=== PATIENT | male | born 1955 | race American Indian/Alaskan Native ===

== ENCOUNTER 2020-04-12 05:57 | Day surgery (SDC) | payer MEDICARE, OTHER ==
[2020-04-12] MEDS ORDERED: SODIUM CHLORIDE 0.9% 1000 ML 1,000 ML IV SCH (06:00)
[2020-04-12] MEDS ORDERED: ceFAZolin/Water 2 GM/20 ML 2 GM/20 ML SYRINGE IV NR (06:00)
[2020-04-12] MEDS ORDERED: MIDAZOLAM 2 MG/2 ML INJ IV NR (06:00)
[2020-04-12 07:02] LABS: Hematocrit 35.6 % (35.5-45.6); Hemoglobin 11.8 gm/dl (11.8-15.2); Mean Corpuscular HGB Conc 33 % (32-34); Mean Corpuscular Volume 104 fl (84-94); Platelet Count 254 K/mm3 (140-440); Red Blood Count 3.42 M/mm3 (3.65-5.03)
[2020-04-12] MEDS ORDERED: fentaNYL 100 MCG/2 ML INJ IV NR (07:07)
[2020-04-12] MEDS ORDERED: BUPIVACAINE/PF (0.25%) 2.5 MG/ML 30 ML VIAL INFILTRATI ONE (07:16)
[2020-04-12] MEDS ORDERED: LIDOCAINE (1%) 10 MG/1 ML VIAL 20 ML MDV ONE (07:16)
[2020-04-12] MEDS ORDERED: propofoL 200 MG/20 ML VIAL IV ONE ×2 (07:25→09:01)
--- NOTE | 2020-04-12 07:29 | Anesthesia Day of Surgery ---
Anesthesia Day of Surgery - Day of Surgery Patient Examined: Yes Patient H&P Reviewed: Yes Patient is NPO: Yes
--- NOTE | 2020-04-12 07:29 | Anesthesia Consultation ---
Anesthesia Consult and Med Hx Date of service: 04/12/20 - Airway Anesthetic Teeth Evaluation: Good ROM Head & Neck: Adequate Mental/Hyoid Distance: Adequate Mallampati Class: Class III Intubation Access Assessment: Possibly Difficult - Pulmonary Exam CTA: Yes - Cardiac Exam Cardiac Exam: RRR - Pre-Operative Health Status ASA Pre-Surgery Classification: ASA3 Proposed Anesthetic Plan: MAC Nerve Block: supraclavicular - Pulmonary Hx Smoking: No Hx Respiratory Symptoms: No Hx Sleep Apnea: No (HIGH RISK ON DEEDEE PRESCREEN) - Cardiovascular System Hx Hypertension: Yes Hx Heart Attack/AMI: No Hx Percutaneous Transluminal Coronary Angioplasty (PTCA): No Hx Cardia Arrhythmia: No Hx Heart Murmur: No - Central Nervous System CVA: Yes (TIA 2017) - Endocrine Hx End Stage Renal Disease: Yes (last HD 04/12/20) Hx Liver Disease: No Hx Insulin Dependent Diabetes: Yes Hx Thyroid Disease: No - Hematic Hx Anemia: Yes - Other Systems Hx Obesity: Yes (BMI 35) - Additional Comments Anesthesia Medical History Comments: No hx anesthetic complications.
[2020-04-12] MEDS ORDERED: HEPARIN 10,000 UNITS/10 ML VIAL ONE (07:34)
[2020-04-12] MEDS ORDERED: BUPIVACAINE/PF (0.5%) 5 MG/1 ML 10 ML VIAL INFILTRATI ONE (07:34)
[2020-04-12] MEDS ORDERED: SODIUM CHLORIDE 0.9% 500 ML 500 ML ONE (07:34)
--- NOTE | 2020-04-12 08:01 | Progress Note ---
Regional Anesthesia Block - Regional Anesthesia Block Start Time: 07:30 Stop Time: :40 Performed By:: TAMMIE SAMS Procedure: [Left] Ultrasound Guided Supraclavicular Block Pt IDd, consent obtained, time out performed. Pt on monitor + O2 via NC, VS stable, sedation given per pre-op RN. Sterile prep. Landmarks identified with ultrasound. [3]cc skin wheel with 1% lidocaine. Needle advanced to brachial plexus in plane with ultrasound. [25]cc [0.25]% bupivacaine injected incrementally with negative aspiration, no paresthesias. Pt tolerated procedure well, no immediate complications noted.
[2020-04-12] MEDS ORDERED: LIDOCAINE MPF (2%) 20 MG/1 ML VIAL 5 ML ONE (09:01)
[2020-04-12] MEDS ORDERED: HEPARIN 10,000 UNITS/10 ML VIAL IR ONE (09:20)
[2020-04-12] MEDS ORDERED: SODIUM CHLORIDE 0.9% IRR 1,500 ML BOTTLE IR ONE (09:21)
[2020-04-12] MEDS ORDERED: SODIUM CHLORIDE 0.9% 500 ML IVPB IRRIGATION ONE (09:21)
--- NOTE | 2020-04-12 10:08 | Short Stay Summary ---
Short Stay Documentation Date of service: 04/12/20 Narrative H&P: See H&P - History H&P: obtained from office - Allergies and Medications Current Medications: Allergies No Known Allergies Allergy (Unverified 04/08/20 15:24) Home Medications Medication Instructions Recorded Confirmed Last Taken Type Cholecalciferol Vit D3 5,000 units PO DAILY 04/08/20 04/12/20 04/11/20 08:00 History HumuLIN 70/30 Kwikpen 10 units SUB-Q QAM 04/08/20 04/12/20 04/11/20 08:00 History Magnesium 250 mg PO DAILY 04/08/20 04/12/20 04/11/20 08:00 History hydrALAZINE [Apresoline TAB] 100 mg PO BID 04/08/20 04/12/20 04/11/20 20:00 History Active Medications Sodium Chloride (Nacl 0.9% 1000 Ml) 1,000 mls @ 42 mls/hr IV DIRECT JEFRY Stop: 04/12/20 23:59 Last Admin: 04/12/20 07:15 Dose: 42 mls/hr Documented by: Cefazolin Sodium (Ancef/Sterile Water 2 Gm/20 Ml) 2 gm in 20 mls @ 80 mls/hr IV PREOP NR; Protocol Stop: 04/12/20 23:59 Midazolam HCl (Midazolam 2 Mg/2 Ml Inj) 2 mg IV PREOP NR Stop: 04/12/20 23:00 Last Admin: 04/12/20 07:32 Dose: 2 mg Documented by: - Brief post op/procedure progress note Date of procedure: 04/12/20 Pre-op diagnosis: End-Stage Renal Disease Post-op diagnosis: same Procedure: Creation of Left Brachiocephalic Arteriovenous Fistula Anesthesia: MAC, regional Surgeon: GIL TEJADA Estimated blood loss: minimal Pathology: none Condition: stable - Disposition Condition at discharge: Good Disposition: DC-01 TO HOME OR SELFCARE Short Stay Discharge Plan Activity: other (No heavy lifting with left arm for 2 weeks.) Wound: open to air, keep clean and dry, other (Okay to wash the wound with soap and water but do not soak in water for 2 weeks.) Follow up with: GIL TEJADA MD [Staff Physician] - 14 Days Prescriptions: HYDROcodone/APAP 5-325 [[place] 5/325] 1 each PO Q4HR PRN #30 tablet PRN Reason: Pain
--- NOTE | 2020-04-12 10:10 | Operative Report ---
Operative Report Operative Report: Date of procedure: 04/12/2020 Pre-operative diagnosis: End-Stage Renal Disease Post-operative diagnosis: End-Stage Renal Disease Procedure(s): Creation of Left Brachial Artery to Cephalic Vein Arteriovenous Fistula Surgeon: Gagandeep Albarado MD [place] Cutter: None Anesthesia: Regional/MAC EBL: Minimal Counts: Correct Complications: None Condition: Stable Findings: Successful creation of left brachiocephalic arteriovenous fistula with palpable thrill and palpable radial pulse at the completion of the case. Specimen: None Indications: The patient is a 64-year-old male with a history of end-stage renal disease who is currently on hemodialysis through a right internal jugular permacath. He is in need of long-term dialysis access and a vein mapping demonstrated he is a suitable candidate for creation of an arteriovenous fistula. He was given the risk, benefits, and alternative procedures and consented to the procedure. Description of Procedure: The patient had a regional block of the patient's left arm performed in the preoperative area prior to being transported to the operating room. Once the regional block was performed the patient was transported to the operating room and adequate sedation was given. When the patient was sedated a timeout was performed and the patient's left arm was then prepped and draped in normal sterile fashion. A transverse incision was then made and carried down to the cephalic vein using sharp dissection. The vein was dissected out both proximally and distally and suture ligated and divided distally. I flushed the vein with heparinized saline and flow was controlled with a bulldog clamp. I then dissected out the brachial artery through this incision circumferentially both proximal and distal and controlled the artery with vessel loops. I systemically heparinized the patient with 3000 units of heparin IV and used angled DeBakey clamps to control flow through the artery. I created an arteriotomy using an 11 blade and Cheung scissors. I created an end to side anastomosis between the cephalic vein and brachial artery using a 6-0 Prolene in running fashion. Prior to completing the anastomosis I flashed the artery both proximally and distally and then flushed the anastomosis with heparinized saline to remove any debris. I then completed the anastomosis and removed all clamps allowing flow into the fistula which had an adequate thrill. I achieved hemostasis with a combination of Quick Clot and electrocautery. Once hemostasis had been achieved I closed the wound in 2 layers using a 3-0 Vicryl in a running fashion in the deep dermal layer and a 4-0 Monocryl in running fashion in the subcuticular layer. I then dressed the wound with Dermabond. The patient tolerated the procedure well. All sponge, needle, and instrument counts were correct. The patient was taken to the recovery area in stable condition.
--- NOTE | 2020-04-12 12:20 | Post Anesthesia Evaluation ---
- Post Anesthesia Evaluation Patient Participated: Yes Airway Patent: Yes Stable Respiratory Function: Yes Nausea/Vomiting: No Temp > 96.8F: Yes Pain Manageable: Yes Adequeate Hydration: Yes Anesthesia Complications: No Block Receding Appropriately: Yes (Motor block receding. Provided with sling.)
[2020-04-12 19:41] VITALS: BP 147/76
== END 2020-04-12 05:58 | disposition home or self-care (01) ==
LOC: OR 05:57
PROVIDERS: ATTEND Surgery Vascular Surgery
DX: I12.0 Hypertensive chronic kidney disease with stage 5 chronic kidney disease or end stage renal disease (principal); E11.22 Type 2 diabetes mellitus with diabetic chronic kidney disease; N18.6 End stage renal disease; E66.9 Obesity, unspecified; D64.9 Anemia, unspecified; Z98.890 Other specified postprocedural states; Z68.35 Body mass index [BMI] 35.0-35.9, adult; Z79.899 Other long term (current) drug therapy; Z86.73 Personal history of transient ischemic attack (TIA), and cerebral infarction without residual deficits
CPT/HCPCS: 36415; 36821; 80048; 82962; 85027; J0690; J1644; J2250; J2704; J3010; J7030; J7040; 64450